=== PATIENT | female | born 1960 | race Caucasian/White ===

== ENCOUNTER 2016-09-14 05:31 | Inpatient (IN) ==
[2016-09-14] MEDS ORDERED: VANCOMYCIN INJ 1,000 MG in SODIUM CHLORIDE 0.9% 250 ML IV ONE (06:00)
[2016-09-14] MEDS ORDERED: ceFAZolin 1,000 MG VIAL ONE ×2 (06:07→07:03)
[2016-09-14] MEDS ORDERED: VANCOMYCIN 1,000 MG VIAL ONE (06:07)
[2016-09-14] MEDS ORDERED: SODIUM CHLORIDE 0.9% 100 ML IV ONE (06:08)
[2016-09-14] MEDS ORDERED: INSULIN REGULAR 100 UNIT/ML SUBCUT ONE (06:35)
[2016-09-14] MEDS ORDERED: INSULIN REGULAR 100 UNIT/ML ONE (06:41)
[2016-09-14] MEDS ORDERED: BACITRACIN OINT 0.9 GM PACK TOP ONE (06:46)
--- NOTE | 2016-09-14 06:48 | History and Physical Update ---
History and Physical Update - History and Physical H&P was reviewed, the patient examined and there: are no changes in the patients condition since last H&P was completed.
[2016-09-14] MEDS ORDERED: ceFAZolin 2,000 MG in PREMIX 1 EACH IV ONE (06:51)
[2016-09-14] MEDS ORDERED: SODIUM CHLORIDE 0.9% 1,000 ML IV SCH (07:00)
[2016-09-14] MEDS ORDERED: TRANEXAMIC ACID 1,000 MG/10 ML VIAL IV ONE (07:03)
[2016-09-14] MEDS ORDERED: PROPOFOL 200 MG/20 ML VIAL IV ONE (07:05)
[2016-09-14] MEDS ORDERED: PHENYLEPHRINE 1 MG/10 ML SYRINGE IV ONE (07:05)
[2016-09-14] MEDS ORDERED: ONDANSETRON 4 MG/2 ML VIAL ONE (07:05)
[2016-09-14] MEDS ORDERED: SUCCINYLCHOLINE 200 MG/10 ML VIAL ONE (07:05)
[2016-09-14] MEDS ORDERED: LIDOCAINE 2% 5 ML VIAL ONE (07:05)
[2016-09-14] MEDS ORDERED: ROPIVACAINE 0.5% 30 ML VIAL ONE (07:58)
--- NOTE | 2016-09-14 08:49 | Operative Note ---
Date of procedure: 09/14/16 Procedure: DIAGNOSIS: Right knee primary osteoarthrosis. History of a right septic knee. PROCEDURE: Right total knee arthroplasty (cpt #03698) SURGEON: Ghazal ANESTHESIA: Spinal converted to general with a postoperative adductor canal block PROCEDURE and FINDINGS: After adequate was induced, the patient's knee was prepped and draped in the usual sterile fashion. The limb was exsanguinated with Esmarch. Tourniquet was inflated to 300 mmHg. A median parapatellar approach was made. Femur was cut using an intramedullary guide and a 4 in 1 cutting jig in 5 degrees of valgus. ACL and menisci were excised. Tibia was cut using intramedullary guide. Patella was cut using freehand technique. Components were trialed. Tibial fin was prepared. Components are cemented in place using Palacos cement and modern cementing techniques. Cement was removed. A 1/8 inch Hemovac drain was placed. The knee was well-balanced and full range of motion with central tracking patella. Deep layers closed with 0-0 Vicryl. Superficial layers were closed with 2-0 and 3-0 Vicryl. Skin was approximated with joan. Bacitracin and a sterile dressing was applied. Patient was transferred to recovery. A postoperative adductor canal block is anticipated. COMPONENTS: The Beryl Persona system was used. 5 CR narrow femur, C natural tibia, 10 mm liner, 29 mm patella TOURNIQUET TIME: 34 minutes Surgeon / Physician: Evert Harman Jr. Discharge Plan - Discharge Medications No Action Gabapentin 300 mg PO TID Levothyroxine Tab [Synthroid Tab] 75 mcg PO DAILY@0700 Losartan [Cozaar] 100 mg PO DAILY #0 Citalopram [CeleXA] 40 mg PO DAILY Multivitamin [Multivitamins] 1 each PO DAILY HYDROcodone/ACETAMIN 7.5-325 [Hysham 7.5-325] 2 tablet PO Q4H PRN #60 tablet PRN Reason: Pain Severe (8-10) Metoclopramide Liquid [Reglan Liquid] 5 mg PO ACHS udcup amLODIPine [Norvasc] 10 mg PO DAILY Valsartan 160 mg PO DAILY Atorvastatin [Lipitor] 80 mg PO BEDTIME Liraglutide [Victoza 2-Marcial] 0.6 mg SQ BEDTIME Cholecalciferol (Vitamin D3) [Vitamin D3] 1,000 unit PO DAILY Cyanocobalamin Inj [Vitamin B12 Inj] 1,000 mcg IM Q30D Pantoprazole Tab [Protonix Tab] 40 mg PO DAILY tablet - Follow Up or Referral - Forms/Instructions
[2016-09-14] MEDS ORDERED: MAGNESIUM HYDROXIDE SUSP 30 ML UDCUP PO PRN (08:51)
[2016-09-14] MEDS ORDERED: oxyCODONE IR 5 MG TABLET PO PRN ×2 (08:51)
[2016-09-14] MEDS ORDERED: ZALEPLON 5 MG CAPSULE PO PRN (08:51)
[2016-09-14] MEDS ORDERED: MORPHINE 2 MG/1 ML SYRINGE IV PRN ×2 (08:51)
[2016-09-14] MEDS ORDERED: diphenhydrAMINE CAP 25 MG CAPSULE PO PRN (08:51)
[2016-09-14] MEDS ORDERED: DEXTROSE 50% 25 GM/50 ML VIAL IV PRN (08:53)
[2016-09-14] MEDS ORDERED: GLUCAGON 1 MG VIAL IM PRN (08:53)
[2016-09-14] MEDS ORDERED: CYANOCOBALAMIN 1000 MCG/1 ML VIAL IM SCH (09:00)
[2016-09-14] MEDS ORDERED: ACETAMINOPHEN 1,000 MG/100 ML VIAL IV ONE (09:06)
[2016-09-14] MEDS ORDERED: fentaNYL 100 MCG/2 ML VIAL ONE (09:06)
[2016-09-14] MEDS ORDERED: MIDAZOLAM 2 MG/2 ML VIAL ONE (09:06)
[2016-09-14] MEDS ORDERED: DESFLURANE 1 UNIT/15 MINUTE INH ONE (09:07)
--- NOTE | 2016-09-14 09:12 | XRay Report ---
XR knee 2V RT Clinical Information: Joint replacement (right knee) Comparison: Prior radiograph 05/04/2015 Findings: Post surgical changes of right total knee arthroplasty noted. Hardware appears in place no evidence of acute loosening/failure. A small ossific fragment posterior to the femoral component near the popliteal fossa is noted and may be incidental and/or related to hardware placement. Overlying soft tissue joan and drains noted. Impression: Postsurgical changes with no definite acute complication. Small ossific fragment near the posterior aspect of the femoral hardware component may be incidental. PROCEDURE INTERPRETED AT [facility] DEPARTMENT OF RADIOLOGY Final Report Signed by: Juan Antonio Fraga
[2016-09-14] MEDS ORDERED: ONDANSETRON 4 MG/2 ML VIAL IV PRN (09:14)
[2016-09-14] MEDS ORDERED: HYDROmorphone 2 MG/1 ML VIAL IV PRN (09:14)
--- NOTE | 2016-09-14 15:18 | Orthopedic Progress Note ---
Orthopedics - Subjective Interval history: alert comfortable. nv ok. dressing c/d/i. continue with orders. Exam - Constitutional Vitals: Period Temp Pulse Resp BP Sys/Anderson Pulse Ox Last 24 Hr 97.2 F-99.4 F 81-94 16-20 127-187/66-104 94-100
[2016-09-14] MEDS: CITALOPRAM 40 MG TABLET PO SCH (15:45)
[2016-09-14] MEDS: MULTIVITAMIN (CENTRUM) TABLET PO SCH (15:45)
[2016-09-14] MEDS: ceFAZolin 2,000 MG in PREMIX 1 EACH IV SCH ×2 (15:45→20:21)
[2016-09-14] MEDS: INSULIN LISPRO 100 UNIT/ML SUBCUT SCH ×4 (15:46→20:20)
[2016-09-14] MEDS: CHOLECALCIFEROL 1,000 UNIT TABLET PO SCH (15:46)
[2016-09-14] MEDS: METOCLOPRAMIDE 10 MG/10 ML UDCUP PO SCH ×3 (15:47→20:20)
[2016-09-14] MEDS: PANTOPRAZOLE 40 MG TABLET PO SCH (15:47)
[2016-09-14] MEDS: DOCUSATE SODIUM 100 MG CAPSULE PO SCH ×2 (15:47→20:21)
[2016-09-14] MEDS: KETOROLAC 30 MG/1 ML VIAL IV SCH ×3 (15:48→20:21)
[2016-09-14] MEDS: GABAPENTIN 300 MG CAPSULE PO SCH ×3 (15:50→20:21)
[2016-09-14] MEDS: LACTATED RINGERS 1,000 ML IV SCH ×2 (15:57→20:04)
--- NOTE | 2016-09-14 16:13 | Pulmonology Progress Note ---
Pulmonary - PN: Subj Interval history: Patient is a 56-year-old white lady that came in today for a right knee replacement. The patient has considerable arthritis and had a previous postoperative infection of the right knee. Now she has a very poor functioning knee and came in for the knee replacement. She did well with anesthesia and is breathing well. She does have hypertension and diabetes along with arthritis. She is a little uncomfortable but is doing well otherwise. Exam (Progress Note) - Constitutional Vitals: Period Temp Pulse Resp BP Sys/Anderson Pulse Ox Last 24 Hr 97.2 F-99.4 F 81-94 16-20 127-187/66-104 94-100 General appearance: no acute distress, over weight - Head Head exam: Present: normal inspection, normocephalic - Eye Eye exam: Present: EOMI. Absent: scleral icterus Pupils: Present: SURIJT - ENT ENT exam: Present: normal exam - Neck Neck exam: Present: normal inspection. Absent: lymphadenopathy, thyromegaly - Respiratory Respiratory exam: Present: clear to auscultation bilaterally. Absent: rales, wheezes - Cardiovascular Cardiovascular exam: Present: regular rate and rhythm. Absent: gallop, systolic murmur - GI/Abdominal GI/Abdominal exam: Present: normal bowel sounds, soft. Absent: distended, organomegaly, tenderness - Extremities Exam Extremities exam: Present: other (The right knee is splinted). Absent: calf tenderness - Neurological Exam Neurological exam: Present: alert, oriented X3, CN II-XII intact. Absent: motor sensory deficit - Psychiatric Psychiatric exam: Present: normal affect, normal mood - Skin Skin exam: Present: warm, dry Assessment and Plan (1) Osteoarthritis of right knee Status: Acute Assessment and plan: Patient has significant arthritis of her right knee and she comes in for knee replacement. Current Visit: Yes (2) Obesity Status: Acute Assessment and plan: She is overweight but is doing okay at present Current Visit: No (3) Hypertension Status: Acute Assessment and plan: Her blood pressure and heart rate are stable at present Current Visit: No (4) Diabetes Status: Acute Assessment and plan: Her glucoses are elevated so far. Current Visit: No (5) Status post right knee replacement Status: Acute Assessment and plan: The patient came in and had a knee replacement today. She is doing well postop. Current Visit: Yes
[2016-09-14] MEDS: LOSARTAN 50 MG TABLET PO SCH (20:04)
[2016-09-14] MEDS: ATORVASTATIN 80 MG TABLET PO SCH (20:21)
[2016-09-15] MEDS: FONDAPARINUX 2.5 MG/0.5 ML SYRINGE SUBCUT SCH (02:23)
[2016-09-15] MEDS: KETOROLAC 30 MG/1 ML VIAL IV SCH (02:23)
[2016-09-15 05:04] LABS: Basophils % 0.4 % (0.0-0.8); Eosinophils # 0.2 10*3/uL (0.0-0.87); Eosinophils % 2.7 % (0.00-10.9); Hematocrit 33.9 VOL% (35.7-47.0); Hemoglobin 11.6 GM/DL (12.0-16.0); Immature Granulocytes % 0.6 %; Immature Granulocytes Absolute 0.05 #; Lymphocytes # 1.8 10*3/uL (1.4-4.0); Lymphocytes % 21.4 % (21.3-54.2); Mean Corpuscular HGB Conc 34.2 GM/DL (32-36); Mean Corpuscular Hemoglobin 29 PG (27-34); Mean Corpuscular Volume 84.1 FL (87-102); Mean Platelet Volume 9.7 FL (9.6-12.0); Monocytes # 0.9 10*3/uL (0.11-0.8); Monocytes % 10.2 % (1.7-12.7); Neutrophils # 5.5 10*3/uL (1.4-7.4); Neutrophils % 64.7 % (38.7-73.9); Platelet Count 240 T/CUMM (130-400); Red Blood Count 4.03 MC/CUMM (3.8-5.5); Red Cell Distribution Width 12.9 % (9.3-17.3); White Blood Count 8.4 T/CUMM (4-12)
[2016-09-15 05:38] LABS: Osmolality,Calculated 286.1 MOS/KG (273-304); Potassium 3.6 MMOL/L (3.5-5.1)
[2016-09-15] MEDS: LEVOTHYROXINE 75 MCG TABLET PO SCH (06:17)
[2016-09-15] MEDS: LACTATED RINGERS 1,000 ML IV SCH (06:17)
[2016-09-15] MEDS: GABAPENTIN 300 MG CAPSULE PO SCH ×3 (08:31→21:33)
[2016-09-15] MEDS: CHOLECALCIFEROL 1,000 UNIT TABLET PO SCH (08:31)
[2016-09-15] MEDS: VALSARTAN 160 MG TABLET PO SCH (08:31)
[2016-09-15] MEDS: CITALOPRAM 40 MG TABLET PO SCH (08:31)
[2016-09-15] MEDS: amLODIPine 10 MG TABLET PO SCH (08:31)
[2016-09-15] MEDS: LOSARTAN 50 MG TABLET PO SCH (08:31)
[2016-09-15] MEDS: DOCUSATE SODIUM 100 MG CAPSULE PO SCH ×2 (08:32→21:33)
[2016-09-15] MEDS: MULTIVITAMIN (CENTRUM) TABLET PO SCH (08:32)
[2016-09-15] MEDS: METOCLOPRAMIDE 10 MG/10 ML UDCUP PO SCH ×4 (08:32→21:33)
[2016-09-15] MEDS: INSULIN LISPRO 100 UNIT/ML SUBCUT SCH ×4 (08:32→21:33)
[2016-09-15] MEDS: PANTOPRAZOLE 40 MG TABLET PO SCH (08:34)
--- NOTE | 2016-09-15 08:57 | Pulmonology Progress Note ---
Pulmonary - PN: Subj Interval history: Patient is a 56-year-old white lady that came in for a right knee replacement. The patient has considerable arthritis and had a previous postoperative infection of the right knee. Now she has a very poor functioning knee and came in for the knee replacement. She has had some discomfort but is doing fairly well otherwise. She says she is breathing okay. She is going to try to do some physical therapy today. Exam (Progress Note) - Constitutional Vitals: Period Temp Pulse Resp BP Sys/Anderson Pulse Ox Last 24 Hr 97.2 F-99.4 F 83-105 16-20 126-187/60-106 93-100 Exam: General appearance: no acute distress, over weight, she has some discomfort but is doing okay - Head Head exam: Present: normal inspection, normocephalic - Eye Eye exam: Present: EOMI. Absent: scleral icterus Pupils: Present: SURJIT - ENT ENT exam: Present: normal exam - Neck Neck exam: Present: normal inspection. Absent: lymphadenopathy, thyromegaly - Respiratory Respiratory exam: Present: clear to auscultation bilaterally. She is moving air well without any rales or wheezing. - Cardiovascular Cardiovascular exam: Present: regular rate and rhythm. Absent: gallop, systolic murmur - GI/Abdominal GI/Abdominal exam: Present: normal bowel sounds, soft. Absent: distended, organomegaly, tenderness - Extremities Exam Extremities exam: Present: other (The right knee is splinted). Absent: calf tenderness - Neurological Exam Neurological exam: Present: alert, oriented X3, CN II-XII intact. Absent: motor sensory deficit - Psychiatric Psychiatric exam: Present: normal affect, normal mood - Skin Skin exam: Present: warm, dry Results - Labs CBC & BMP: 09/15/16 04:17 09/15/16 04:17 Assessment and Plan (1) Osteoarthritis of right knee Status: Acute Assessment and plan: Patient has significant arthritis of her right knee and she comes in for knee replacement. She did well with surgery and is not having any new problems. Current Visit: Yes (2) Obesity Status: Acute Assessment and plan: She is overweight but is doing okay at present Current Visit: No (3) Hypertension Status: Acute Assessment and plan: Her blood pressure and heart rate are stable at present Current Visit: No (4) Diabetes Status: Acute Assessment and plan: Her glucoses are elevated so far. Her glucose was 280 this morning Current Visit: No (5) Status post right knee replacement Status: Acute Assessment and plan: The patient came in and had a knee replacement. She is doing fairly well postop. She does have some soreness but will try physical therapy today. She is not having any other problems at present. Current Visit: Yes
--- NOTE | 2016-09-15 10:02 | Orthopedic Progress Note ---
Orthopedics - Subjective Interval history: comfortable. walked in the room yesterday. nv ok. dressing dry. continue pt. Exam - Constitutional Vitals: Period Temp Pulse Resp BP Sys/Anderson Pulse Ox Last 24 Hr 97.2 F-98.9 F 83-105 16-20 126-178/60-106 93-100 Results - Labs CBC & BMP: 09/15/16 04:17 09/15/16 04:17
[2016-09-15] MEDS: CELECOXIB 200 MG CAPSULE PO SCH (16:52)
--- NOTE | 2016-09-15 18:18 | Pathology Report from [facility] ---
[facility] ACCESSION # : [id number] PATIENT NAME : Yony Herrera ORDERING DR : BRICE RICKETTS MD CLINICAL HX: Rigth knee osteoarthritis POST-OP DX: Same SPECIMEN INFO: Right knee bone and tissue GROSS DESCRIPTION: Received fresh labeled with the patients name and consists of multiple fragments of bone and soft tissue and cartilage measuring 15.0 x 5.0 cm in aggregate. The articular surfaces are focally degenerative with areas of subchondral eburnation seen. [employer] Representative tissue submitted in one cassette. DIAGNOSIS FOR YONY HERRERA: RIGHT KNEE, TOTAL REPLACEMENT: Fragments of bone and cartilage with degenerative/osteoarthritic changes. COLLECTED DATE: 09/14/2016 [facility] REPORT DATE: 09/15/2016 ELECTRONICALLY SIGNED BY: Valeri Moseley M.D. 09/15/2016 - 10:52:25 [facility] SYSTEMRup[facility]
[2016-09-15] MEDS ORDERED: VICTOZA (Liraglutide) 0.6 MG SQ SCH (21:00)
[2016-09-15] MEDS: ATORVASTATIN 80 MG TABLET PO SCH (21:33)
[2016-09-16] MEDS: FONDAPARINUX 2.5 MG/0.5 ML SYRINGE SUBCUT SCH (04:02)
[2016-09-16 05:12] LABS: Basophils % 0.4 % (0.0-0.8); Eosinophils # 0.4 10*3/uL (0.0-0.87); Eosinophils % 5.6 % (0.00-10.9); Hematocrit 33.7 VOL% (35.7-47.0); Hemoglobin 11.6 GM/DL (12.0-16.0); Immature Granulocytes % 0.4 %; Immature Granulocytes Absolute 0.03 #; Lymphocytes # 2.2 10*3/uL (1.4-4.0); Lymphocytes % 29.5 % (21.3-54.2); Mean Corpuscular HGB Conc 34.4 GM/DL (32-36); Mean Corpuscular Hemoglobin 29 PG (27-34); Mean Corpuscular Volume 84.3 FL (87-102); Mean Platelet Volume 9.7 FL (9.6-12.0); Monocytes # 0.7 10*3/uL (0.11-0.8); Monocytes % 9.8 % (1.7-12.7); Neutrophils % 54.3 % (38.7-73.9); Platelet Count 233 T/CUMM (130-400); White Blood Count 7.4 T/CUMM (4-12)
[2016-09-16] MEDS: LEVOTHYROXINE 75 MCG TABLET PO SCH (06:14)
--- NOTE | 2016-09-16 08:27 | Pulmonology Progress Note ---
Pulmonary - PN: Subj Interval history: Patient is a 56-year-old white lady that came in for a right knee replacement. The patient has considerable arthritis and had a previous postoperative infection of the right knee. Now she has a very poor functioning knee and came in for the knee replacement. She says her leg is sore but feeling better. She is complaining of some chest soreness bilaterally and this may have been from coughing. She does not seem to be having any trouble breathing. She has been doing fairly well with physical therapy. She says she wants to go home tomorrow and do outpatient physical therapy Exam (Progress Note) - Constitutional Vitals: Period Temp Pulse Resp BP Sys/Anderson Pulse Ox Last 24 Hr 97.1 F-98.8 F 84-101 18-18 130-165/60-87 94-99 Exam: General appearance: no acute distress, over weight, she has some discomfort but is doing okay. She looks like she is breathing okay today. - Head Head exam: Present: normal inspection, normocephalic - Eye Eye exam: Present: EOMI. Absent: scleral icterus Pupils: Present: SURJIT - ENT ENT exam: Present: normal exam - Neck Neck exam: Present: normal inspection. Absent: lymphadenopathy, thyromegaly - Respiratory Respiratory exam: Present: clear to auscultation bilaterally. She is moving air well without any rales or wheezing. She has lateral chest wall soreness for some reason. She does not seem to be having any difficulty breathing however. - Cardiovascular Cardiovascular exam: Present: regular rate and rhythm. Absent: gallop, systolic murmur - GI/Abdominal GI/Abdominal exam: Present: normal bowel sounds, soft. Absent: distended, organomegaly, tenderness - Extremities Exam Extremities exam: Present: other (The right knee is splinted). Absent: calf tenderness, no signs of phlebitis - Neurological Exam Neurological exam: Present: alert, oriented X3, CN II-XII intact. Absent: motor sensory deficit - Psychiatric Psychiatric exam: Present: normal affect, normal mood - Skin Skin exam: Present: warm, dry Results - Labs CBC & BMP: 09/16/16 04:14 09/15/16 04:17 Assessment and Plan (1) Osteoarthritis of right knee Status: Acute Assessment and plan: Patient has significant arthritis of her right knee and she comes in for knee replacement. She did well with surgery and is doing therapy fairly well. Current Visit: Yes (2) Obesity Status: Acute Assessment and plan: She is overweight but is doing okay at present Current Visit: No (3) Hypertension Status: Acute Assessment and plan: Her blood pressure and heart rate are stable at present Current Visit: No (4) Diabetes Status: Acute Assessment and plan: Her glucoses are elevated so far. Her glucose was 325 this morning. Will restart her Victoza. Current Visit: Yes (5) Status post right knee replacement Status: Acute Assessment and plan: The patient came in and had a knee replacement. She is doing fairly well postop. She does have some soreness but is doing better with therapy. She says she wants to go home tomorrow. Current Visit: Yes
[2016-09-16] MEDS: METOCLOPRAMIDE 10 MG/10 ML UDCUP PO SCH ×4 (09:38→21:07)
[2016-09-16] MEDS: CHOLECALCIFEROL 1,000 UNIT TABLET PO SCH (09:39)
[2016-09-16] MEDS: GABAPENTIN 300 MG CAPSULE PO SCH ×3 (09:39→21:07)
[2016-09-16] MEDS: MULTIVITAMIN (CENTRUM) TABLET PO SCH (09:39)
[2016-09-16] MEDS: DOCUSATE SODIUM 100 MG CAPSULE PO SCH ×2 (09:39→21:07)
[2016-09-16] MEDS: CELECOXIB 200 MG CAPSULE PO SCH (09:40)
[2016-09-16] MEDS: CITALOPRAM 40 MG TABLET PO SCH (09:40)
[2016-09-16] MEDS: amLODIPine 10 MG TABLET PO SCH (09:41)
[2016-09-16] MEDS: VALSARTAN 160 MG TABLET PO SCH (09:41)
[2016-09-16] MEDS: PANTOPRAZOLE 40 MG TABLET PO SCH (09:46)
[2016-09-16] MEDS: LOSARTAN 50 MG TABLET PO SCH (09:47)
[2016-09-16] MEDS: INSULIN LISPRO 100 UNIT/ML SUBCUT SCH ×4 (09:48→21:07)
--- NOTE | 2016-09-16 10:11 | Orthopedic Progress Note ---
Orthopedics - Subjective Interval history: Mrs. Cardenas is comfortable today. She is complaining of some chest wall discomfort. Dr. Castle feels that it may be related to her coughing. She does not appear to be in any acute distress. Fragmented right lower extremity dressing is clean, dry and intact. Right lower extremities neurovascularly unchanged. Plan: Continue with physical therapy. Plan discharge home tomorrow with outpatient physical therapy. Discharge instructions were reviewed. Exam - Constitutional Vitals: Period Temp Pulse Resp BP Sys/Anderson Pulse Ox Last 24 Hr 97.1 F-98.8 F 84-101 18-18 130-165/60-87 94-99 Results - Labs CBC & BMP: 09/16/16 04:14 09/15/16 04:17
--- NOTE | 2016-09-16 10:14 | Discharge Summary ---
Hospital Course - Hospital Course Hospital Course: Mrs. Cardenas was admitted after undergoing an uncomplicated right total knee arthroplasty. She received perioperative DVT and antimicrobial prophylaxis. She received physical therapy. Dr. Lemuel Castle was consulted to manage her medical problems perioperatively. She is to be discharged home with outpatient physical therapy. Specialty Discharge - Follow Up or Referrals Follow up with: Evert Harman Jr., MD [Physician] - 09/23/16 9:45 am Discharge Plan - Discharge Data Disposition: Disch To Home/Self Care Condition at Discharge: Stable Discharge Diet: diabetic diet Activity: ambulate only with your walker Hygiene: may shower Weight Bearing at Discharge: weight bear as tolerated Driving: not until seen by doctor - Discharge Medications Continue Gabapentin 300 mg PO TID Levothyroxine Tab [Synthroid Tab] 75 mcg PO DAILY@0700 Losartan [Cozaar] 100 mg PO DAILY #0 Citalopram [CeleXA] 40 mg PO DAILY Multivitamin [Multivitamins] 1 each PO DAILY HYDROcodone/ACETAMIN 7.5-325 [Bard 7.5-325] 2 tablet PO Q4H PRN #60 tablet PRN Reason: Pain Severe (8-10) Metoclopramide Liquid [Reglan Liquid] 5 mg PO ACHS udcup amLODIPine [Norvasc] 10 mg PO DAILY Valsartan 160 mg PO DAILY Atorvastatin [Lipitor] 80 mg PO BEDTIME Liraglutide [Victoza 2-Marcial] 0.6 mg SQ BEDTIME Cholecalciferol (Vitamin D3) [Vitamin D3] 1,000 unit PO DAILY Cyanocobalamin Inj [Vitamin B12 Inj] 1,000 mcg IM Q30D Pantoprazole Tab [Protonix Tab] 40 mg PO DAILY tablet - Follow Up or Referral Follow Up: Evert Harman Jr., MD [Physician] - 09/23/16 9:45 am - Forms/Instructions Instructions: Total Knee Replacement (DC) Additional Discharge Instructions: Daily dry dressing changes. Weightbearing as tolerated. Arrange walker and bedside commode for home use. Wear WILLIE hose for 1 month. Follow-up appointment in 7-10 days. Arrange f/u with primary care provider for diabetes management. Set up outpatient physical therapy 3 times a week for 4 weeks. Exam - Constitutional Vitals: Period Temp Pulse Resp BP Sys/Anderson Pulse Ox Last 24 Hr 97.1 F-98.8 F 84-101 18-18 130-165/60-87 94-99 Discharge Results Procedures and tests throughout hospitalization: Pending Orders 09/17/16 04:00 Comp Blood Count Auto Diff IN AM Labs on day of discharge: Labs from last 24 hours 09/16/16 09/16/16 09/15/16 07:14 04:14 19:59 WBC 7.4 RBC 4.00 Hgb 11.6 L Hct 33.7 L MCV 84.3 L MCH 29 MCHC 34.4 RDW 13.0 Plt Count 233 MPV 9.7 Neut % (Auto) 54.3 Lymph % (Auto) 29.5 Pitt % (Auto) 9.8 Eos % (Auto) 5.6 Baso % (Auto) 0.4 Neut # (Auto) 4.0 Lymph # (Auto) 2.2 Pitt # (Auto) 0.7 Eos # (Auto) 0.4 Baso # (Auto) 0.0 Immature Gran % 0.4 Nucleated RBC % 0.0 Immature Gran # 0.03 Nucleated RBCs # 0.00 POC Glucose 325 H 290 H 09/15/16 09/15/16 15:23 11:25 WBC RBC Hgb Hct MCV MCH MCHC RDW Plt Count MPV Neut % (Auto) Lymph % (Auto) Pitt % (Auto) Eos % (Auto) Baso % (Auto) Neut # (Auto) Lymph # (Auto) Pitt # (Auto) Eos # (Auto) Baso # (Auto) Immature Gran % Nucleated RBC % Immature Gran # Nucleated RBCs # POC Glucose 341 H 336 H DS: Provider Date of admission: 09/14/16 05:31 Primary care physician: SONYA Sandy Attending physician on admission: Evert Harman Jr., Consults: 09/14/16 08:51 Consult to Case Mgmt/Social Srvs [CONS] Routine Reason for Case Mgmt/Social Srvs: Rehab Home Health Equipment Consult Comment: Bedside Commode, CPM, Walker Consult to Occupational Therapy [CONS] Routine Reason for Occupational Therapy: Evaluate and Treat Consult Comment: ADL's Consult to Physical Therapy [CONS] Routine Reason for Physical Therapy: Evaluate and Treat Gait Training Start Therapy: Today Consult Comment: no cpm 09/14/16 13:52 Consult to Physician [CONS] Routine Comment: Consulting Provider: Cecil Castle Consulting Provider Notified: Yes When should Consulting Provider be notified: Now Person Notified: adan called Date Notified: 09/14/16 Time Notified: 14:12 09/14/16 15:28 Consult to Pastoral Services [CONS] Routine Comment: Pastoral Screen: Request Informatics Analyst Visit Pastoral Screen Source of Request: Patient 09/15/16 12:58 Consult to Outpatient Therapy [CONS] Routine Reason for Outpatient Therapy: Physical Therapy Consult Comment: Patient wants to do OP Rehab @ [facility] when D/C'd. Please see Discharging clinician: Evert Harman Jr., Expected date of discharge: 09/17/16
[2016-09-16] MEDS: ATORVASTATIN 80 MG TABLET PO SCH (21:07)
[2016-09-17 02:43] LABS: Basophils % 0.2 % (0.0-0.8); Eosinophils # 0.3 10*3/uL (0.0-0.87); Hematocrit 30.7 VOL% (35.7-47.0); Hemoglobin 10.5 GM/DL (12.0-16.0); Immature Granulocytes % 0.5 %; Immature Granulocytes Absolute 0.04 #; Lymphocytes % 23.6 % (21.3-54.2); Mean Corpuscular HGB Conc 34.2 GM/DL (32-36); Mean Corpuscular Hemoglobin 29 PG (27-34); Mean Corpuscular Volume 83.2 FL (87-102); Mean Platelet Volume 9.6 FL (9.6-12.0); Monocytes # 0.8 10*3/uL (0.11-0.8); Monocytes % 9.1 % (1.7-12.7); Neutrophils # 5.2 10*3/uL (1.4-7.4); Neutrophils % 62.6 % (38.7-73.9); Platelet Count 241 T/CUMM (130-400); Red Blood Count 3.69 MC/CUMM (3.8-5.5); Red Cell Distribution Width 12.8 % (9.3-17.3); White Blood Count 8.4 T/CUMM (4-12)
[2016-09-17] MEDS: FONDAPARINUX 2.5 MG/0.5 ML SYRINGE SUBCUT SCH (03:14)
[2016-09-17] MEDS: LEVOTHYROXINE 75 MCG TABLET PO SCH (06:31)
--- NOTE | 2016-09-17 07:28 | Orthopedic Progress Note ---
Orthopedics - Subjective Interval history: Doing well no complaints likely home today after PT discharge instructions per Dr. Harman Exam - Constitutional Vitals: Period Temp Pulse Resp BP Sys/Anderson Pulse Ox Last 24 Hr 96.7 F-98.9 F 85-99 16-20 119-157/61-87 92-98 Results - Labs CBC & BMP: 09/17/16 02:30 09/15/16 04:17 Specialty Discharge - Follow Up or Referrals Follow up with: Evert Harman Jr., MD [Physician] - 09/23/16 9:45 am
[2016-09-17 07:44] VITALS: BP 138/80
--- NOTE | 2016-09-17 07:54 | Pulmonology Progress Note ---
Pulmonary - PN: Subj Interval history: 56-year-old white female that had a right total knee replacement. She has a history of diabetes hypertension sleep apnea. Her blood sugars have been running around 300 here. She is apparently recently had her medicines changed by her primary care physician. I have advised her to return to her primary care physician as soon as she can post discharge. Likely her medications were held around the time of her surgery and this should get better. Exam (Progress Note) - Constitutional Vitals: Period Temp Pulse Resp BP Sys/Anderson Pulse Ox Last 24 Hr 96.6 F-98.9 F 85-99 16-20 119-157/61-87 92-98 Exam: Vital signs normal. Pupils react to light. Throat is clear. Neck supple no bruits. Chest is clear equal breath sounds. Heart normal rate and rhythm no murmurs. Abdomen soft nontender no masses. Extremities no clubbing cyanosis edema. Bandage on the right knee. Patient was observed walking in the moran with physical therapy and seems to be doing well with that. Results - Labs CBC & BMP: 09/17/16 02:30 09/15/16 04:17 Lab Results: I have reviewed the past 24 hour labs Assessment and Plan (1) MIMI (obstructive sleep apnea) Status: Acute Assessment and plan: Using CPAP at bedtime. Current Visit: No (2) Obesity Status: Acute Assessment and plan: Certainly needs to work on weight loss long-term. She is aware of this. Current Visit: No (3) Diabetes Status: Acute Assessment and plan: Her blood sugars have not been well controlled. We discussed this. She is going to get back on all of her regular medicines at home and see her primary care provider within the next couple of weeks. Current Visit: Yes (4) Status post right knee replacement Status: Acute Assessment and plan: Tolerating ambulation with physical therapy. No drainage. No calf pain Current Visit: Yes Specialty Discharge - Follow Up or Referrals Follow up with: Evert Harman Jr., MD [Physician] - 09/23/16 9:45 am
[2016-09-17] MEDS: INSULIN LISPRO 100 UNIT/ML SUBCUT SCH (09:06)
[2016-09-17] MEDS: PANTOPRAZOLE 40 MG TABLET PO SCH (09:07)
[2016-09-17] MEDS: DOCUSATE SODIUM 100 MG CAPSULE PO SCH (09:07)
[2016-09-17] MEDS: CELECOXIB 200 MG CAPSULE PO SCH (09:07)
[2016-09-17] MEDS: GABAPENTIN 300 MG CAPSULE PO SCH (09:07)
[2016-09-17] MEDS: CHOLECALCIFEROL 1,000 UNIT TABLET PO SCH (09:07)
[2016-09-17] MEDS: VALSARTAN 160 MG TABLET PO SCH (09:07)
[2016-09-17] MEDS: METOCLOPRAMIDE 10 MG/10 ML UDCUP PO SCH (09:08)
[2016-09-17] MEDS: LOSARTAN 50 MG TABLET PO SCH (09:08)
[2016-09-17] MEDS: CITALOPRAM 40 MG TABLET PO SCH (09:08)
[2016-09-17] MEDS: amLODIPine 10 MG TABLET PO SCH (09:08)
[2016-09-17] MEDS: MULTIVITAMIN (CENTRUM) TABLET PO SCH (09:08)
== END 2016-09-17 10:07 | disposition home or self-care (01) | DRG 302 ==
LOC: N.SDSINP 05:31 → N.3E 13:49
PROVIDERS: ADMIT Orthopaedic Surgery; ATTEND Orthopaedic Surgery